=== PATIENT | female | born 1965 ===

== ENCOUNTER 2024-02-11 06:00 | Outpatient (RCR) | payer SELFPAY | END 2024-02-16 18:00 | disposition home or self-care (01) | LOC: GPT 06:00 | PROVIDERS: Visit Provider Physician Assistant | DX: Z96.651 Presence of right artificial knee joint (principal) | CPT/HCPCS: 97110; 97140; 97161 ==

== ENCOUNTER 2024-02-17 06:00 | Outpatient (RCR) | payer SELFPAY | END 2024-03-17 23:59 | disposition home or self-care (01) | LOC: GPT 06:00 | PROVIDERS: Visit Provider Physician Assistant | DX: Z47.1 Aftercare following joint replacement surgery (principal); Z96.651 Presence of right artificial knee joint | CPT/HCPCS: 97110; 97112; 97140; 97535 ==